=== PATIENT | male | born 1985 | race Caucasian/White ===

== ENCOUNTER 2022-10-29 15:31 | Emergency (ER) | payer SELFPAY ==
[2022-10-29 15:33] VITALS: BP 133/88; PULSE 63; RESP 16; TEMP 36.8; O2SAT 99; BMI 23.7
--- NOTE | 2022-10-29 16:16 | CT_ITS ---
STUDY: CT ABDOMEN AND PELVIS WITHOUT CONTRAST REASON FOR EXAM: Male, 37 years old. Pain RADIATION DOSAGE (If Supplied By Facility): CTDIvol = ( 6.08 ) mGy, DLP = ( 315.78 ) mGycm TECHNIQUE: Transaxial images were obtained from the dome of the diaphragm to the symphysis pubis without oral contrast, and without intravenous contrast. Sagittal and coronal images were reconstructed. The spleen 8 Individualized dose optimization techniques were used for this CT. COMPARISON: None. FINDINGS: The visualized lung bases are unremarkable. The visualized portions of the heart are within normal limits. Normal liver. Normal gallbladder and extrahepatic biliary system. Normal spleen. Normal pancreas. Normal bilateral adrenal glands. Abnormal right kidney. Mild hydronephrosis. Suggestion of diffuse renal edema. Findings are related to a 2 mm distal right ureteral stone. This can be seen on axial image 150 and coronal image 65. Normal left kidney. Evaluation of the GI tract is limited by absence of oral contrast. Cannot exclude stomach wall thickening. No dilated loops of bowel or evidence for obstruction. Cannot exclude segmental thickening of the cifuentes of the small or large bowel. Cannot exclude enteritis or colitis. Marked diffuse fecal retention. Appendix within normal limits. Normal abdominal aorta. Normal inferior vena cava. Normal retroperitoneum. Normal urinary bladder. Normal abdominal wall. Normal osseous structures. CT/Abdomen/Pelvis without Cont IMPRESSION: Obstruction of the right kidney collecting system and ureter from a 2 mm distal right ureteral stone. Electronically Signed: Missael Burnham MD at 17:34 EDT ,
--- NOTE | 2022-10-29 16:17 | EDS_ITS ---
HPI HPI - GI History of Present Illness Chief Complaint: Abd Pain Detail of Chief Complaint: Flank pain since 10:30 AM. Informant: patient Abdominal Pain/Flank Pain Onset: Today and Hours Context: Sudden Onset Timing: Continuous Quality: Sharp and Stabbing Location: Right Flank Current Severity: Severe Maximum Severity: Severe Worsened by: Nothing Relieved by: Nothing Nausea/Vomiting/Emesis GI Symptom: Positive for Nausea Onset: Today Severity: Mild Diarrhea/Melena/Hematochezia GI Symptom: Negative for Diarrhea, Melena or Hematochezia Associated Symptoms Associated Symptoms: Negative for Dysuria, Frequency or Hematuria Narrative Narrative: 29-year-old male noticing a past medical or surgical history. Currently on no medications. States he had sudden onset right flank pain at 10:30 AM this morning. It has been constant since that time. It does wax and wane but he has had constant pain. No history of kidney stone. No trauma. Denies any fever. No dysuria or hematuria. Prior similar symptoms: No Recent Illness/Hospitalization: No PFSH PFSH Medical History no medical history no medical history Home Medications NK 10/29/22 [History Last Taken Unknown] Allergy/AdvReac Type Severity Reaction Status Date / Time codeine Allergy Intermediate Hives Verified 10/29/22 15:38 Surgical History no surgical history no surgical history Social History Smoking Status: Never smoker ROS ROS ED ROS Narrative Right flank pain today. No recent illness. Review of Systems ROS Unobtainable: Denies due to encephalopathy Constitutional Constitutional ED: Denies chills or fever(s) ENT ENT ED: Denies ear pain Cardiovascular Cardiovascular: Denies chest pain Respiratory/Chest Respiratory/Chest: Denies cough Gastrointestinal Gastrointestinal: Reports abdominal pain and nausea; Denies constipation, diar jean, melena or vomiting Genitourinary Genitourinary ED: Denies dysuria or hematuria Musculoskeletal Musculoskeletal: Reports back pain; Denies arthralgias Integumentary Denies abscess Neurologic Neurologic: Denies headache(s) Psychiatric Psychiatric: Denies anxiety Endocrine Endocrinology: Denies polydipsia Hematologic/Lymphatic Hematologic/Lymphatic: Denies easy bleeding Allergic/Immunologic Allergic/Immunologic ED: Denies mouth swelling EXAM Physical Exam Narrative Exam Narrative: 37-year-old male with vital signs stable afebrile. Complaining of right flank pain. H EENT exam unremarkable. Lungs clear. Heart regular rhythm rate about 60 no murmur. Chest wall nontender. Abdomen soft nondistended normal bowel sounds no peritoneal signs. Back nontender. No signs of trauma. Moving all 4 extremities. Neurologically is awake and alert with no focal motor deficits. Const Vital Signs: 10/29/22 15:33 10/29/22 16:41 10/29/22 17:51 Temperature 98.2 F Temperature Source Oral Pulse Rate 63 68 72 Respiratory Rate 16 15 18 Blood Pressure 133/88 H 125/86 H 101/68 Blood Pressure Mean 103 99 79 Pulse Ox 99 100 98 Oxygen Delivery Method Room Air Room Air Room Air Positive well nourished and well developed; Negative for obese, cachectic, contractures or unkempt General Appearance ED: well developed and NAD; Negative for unkempt, cachectic, contractures or pallor Nutritional Appearance: Negative for cachectic or obese HEENT Reports moist mucous membranes normocephalic and atraumatic; Negative for trauma or tenderness Eyes PERRL and EOMs intact bilaterally General Eye ED: Negative for pale conjunctiva or scleral icterus Neck no lymphadenopathy, supple and no JVD General: Negative for tenderness Carotids: Negative for other Lymph Lymphatic: Negative for other Resp normal respiratory effort and clear to auscultation bilaterally Effort and Inspection: Negative for respiratory distress or retractions Auscultation: Negative for rales, rhonchi or wheezes Cardio regular rate, regular rhythm, S1 normal heart sound, S2 normal heart sound and no murmurs Rate: Negative for bradycardia or tachycardic Rhythm: Negative for abnormal rhythm GI non-distended and no masses; Negative for non-tender GI Narrative: right-sided tenderness. . No Nava sign. No McBurney's point tenderness. Nondistended. Soft. Positive bowel sounds. Inspection: Negative for abdominal distention Auscultation: normoactive bowel sounds Palpation: soft and tender; Negative for guarding, rigid, hepatomegaly, splenomegaly, hernia, mass, pulsatile mass or rebound tenderness present Back/Spine no CVA tenderness General Back: Negative for CVA tenderness Cervical Spine: Negative for cervical spine tenderness Thoracic Spine / Upper Back: Negative for thoracic spinal tenderness Lumbar Spine / Lower Back: Negative for lumbar spinal tenderness Extremity full ROM General Extremety ED: Negative for edema or tenderness General Extremity: Negative for edema Neuro CN's II-XII intact bilaterally and moves all extremities Sensorium / Orientation: alert, oriented to person and oriented to place; Negative for oriented to time, orientation impaired, confused or lethargic Motor Exam: strength 5/5 throughout Psych mental status grossly normal and thought process normal Appearance: Negative for unkempt Attitude: No agitated Mood & Affect: Negative for depressed, anxious or tearful Skin no wounds General Skin Exam: Negative for jaundice or pallor Lesions: no lesions Rashes: no rashes Trauma: Negative for abrasion Nails: Negative for discolored Image ED - Body Diagram Man: 1. Right-sided tenderness. MDM MDM MDM Narrative Medical decision making narrative: 37-year-old male no seen past medical or surgical history with right sided abdominal pain. Clinically it sounds like a kidney stone. Gallstone or gallbladder disease would also be in the differential clinically and only gets appendicitis. He will be treated with IV fluids, Zofran, Toradol and Dilaudid. Screening labs and CAT scan without contrast. He was seen at another local emergency department never was evaluated by a physician in the left prior to his evaluation there. Repeat exam & today 4 PM patient is doing better actually with IV pain medication. We discussed his CAT scan and CBC. Awaiting further labs. Patient doing well on repeat exam at 6:49 PM. Discharged home. Urine strainer. Fluids. Motrin. [place] for more severe pain. Return if intractable pain, fever or vomiting. History & Record Review Discussion w/independent historian: Patient Lab Data Attestation: I reviewed the patient's lab results. Lab results narrative: CBC showed an elevated white count of 16. I think this is secondary to pain. H&H of 13.6 and 40. Platelets 309. CAT scan of the head without contrast shows a right 2 mm distal ureteral stone with hydro-. CMP unremarkable. Gap 7 BUN and creatinine 21 1.3. Liver enzymes unremarkable other than ALT of 167. Glucose 95. Urinalysis shows no white or red cells. No nitrites. Labs: Laboratory Results - last 24 hr 10/29/22 10/29/22 15:55 18:07 WBC 16.0 H RBC 4.42 L Hgb 13.6 Hct 40.8 MCV 92.3 MCH 30.8 MCHC 33.3 RDW Std Deviation 42.4 RDW Coeff of Jeannette 12.4 Plt Count 309 MPV 11.0 Immature Gran % (Auto) 0.400 Neut % (Auto) 85.7 H Lymph % (Auto) 9.6 L [place] % (Auto) 3.8 Eos % (Auto) 0.1 Baso % (Auto) 0.4 Absolute Neuts (auto) 13.7 H Absolute Lymphs (auto) 1.53 Nucleated RBC % 0 Sodium 139 Potassium 3.7 Chloride 107 Carbon Dioxide 25.0 Anion Gap 7 BUN 21 H Creatinine 1.32 H Estim Creat Clear Calc 80.81 Est GFR (MDRD) Af Amer 78 Est GFR (MDRD) Non-Af 65 BUN/Creatinine Ratio 15.9 Glucose 95 Calcium 8.8 Total Bilirubin 0.50 AST 77 H ALT 167 H Alkaline Phosphatase 75 Total Protein 7.4 Albumin 3.8 Globulin 3.6 Albumin/Globulin Ratio 1.1 Urine Color Yellow Urine Clarity Clear Urine pH 6.5 Ur Specific [place] 1.015 Urine Protein 30 H Urine Glucose (UA) Normal Urine Ketones 5 H Urine Occult Blood Negative Urine Nitrite Negative Urine Bilirubin Negative Urine Urobilinogen 1 H Ur Leukocyte Esterase 25 H Urine RBC 0 SEEN Urine WBC 0-5 SEEN Ur Squamous Epith Cells 0 SEEN Urine Bacteria 0 SEEN Urine Mucus 0 SEEN Radiography Diagnostic Testing: Clinical Impression(s) from Imaging Studies Abdomen/Pelvis CT 10/29/22 16:16 IMPRESSION: Obstruction of the right kidney collecting system and ureter from a 2 mm distal right ureteral stone. Electronically Signed: Missael Burnham MD at 17:34 EDT , Discharge Plan Triage Chief Complaint: Abd Pain ED Provider: Ortega Quiñones Dx/Rx/DC Orders Prescriptions: No Action NK Primary Care Provider: Care Physician,No Primary Referrals: Care Physician,No Primary [Primary Care Provider] -
[2022-10-29 16:23] LABS: Absolute Lymphocyte Count 1.53 X10^3/uL (0.83-4.51); Absolute Neutrophil Count 13.7 X10^3/uL (2.0-7.7); Basophil# 0.06 X10^3/uL; Basophil% 0.4 % (0-1); Eosinophil# 0.02 X10^3/uL; Eosinophils% 0.1 % (0-5); Hematocrit 40.8 % (40-54); Hemoglobin 13.6 g/dL (13.0-16.5); Lymphocyte # 1.53 X10^3/ul (0.83-4.51); Lymphocyte % 9.6 % (19-41); Mean Corp Hgb Conc 33.3 g/dL (32-36); Mean Corpuscular Hgb 30.8 pg (27.0-32.0); Mean Corpuscular Volume 92.3 fL (80-94); Monocyte# 0.61 X10^3/uL; Monocyte% 3.8 % (0-10); NRBC Flagged by Analyzer 0 % (0-5); Neutrophil # 13.73 X10^3/uL (2.7-7.7); Neutrophil % 85.7 % (47-70); Platelet Count 309 K/mm3 (150-450); RBC Distribution Width CV 12.4 % (11.6-14.6); RBC Distribution Width SD 42.4 fl (35.1-43.9); Red Blood Count 4.42 M/mm3 (4.6-6.2)
[2022-10-29] MEDS: Ketorolac 30 MG/ML Syringe IV (16:35)
[2022-10-29] MEDS: Ondansetron 4 MG/2 ML Vial IV (16:35)
[2022-10-29] MEDS: 0.9% Normal Saline 1,000 ML 1000 ML IV (16:35)
[2022-10-29] MEDS: HYDROmorphone 1 MG/ML Syringe IV (16:36)
[2022-10-29 16:41] VITALS: BP 125/86; PULSE 68; RESP 15; O2SAT 100
[2022-10-29 17:51] VITALS: BP 101/68; PULSE 72; RESP 18; O2SAT 98
--- NOTE | 2022-10-29 18:06 | ED.RN ---
Patient ambulatory to bathroom, gait steady. Urine collected nd sent to lab
[2022-10-29 18:12] LABS: Bacteria 0 SEEN /hpf (None Seen); Mucous, Urine 0 SEEN /hpf (<or=2+); Red Blood Cells-Urine 0 SEEN /hpf (0-5); Squamous Epithelial Cells - UA 0 SEEN /hpf (0-5)
[2022-10-29 18:31] LABS: Color, Urine Yellow (Yellow); Glucose, Dipstick Normal (Normal); Ketone-Dipstick 5 mg/dl (Negative); Leukocyte Esterase-Dipstick 25 /ul (Negative); Nitrite-Dipstick Negative (Negative); Occult Blood-Urine Negative /ul (Negative); Protein-Dipstick 30 mg/dl (Negative); Specific Gravity, Urine 1.015 (1.002-1.030); Urine Bilirubin Dipstick Negative (Negative); Urine Clarity Clear (Clear); Urine Urobilinogen 1 mg/dl (Normal); Urine pH 6.5 (5.0 - 8.0)
[2022-10-29 18:34] LABS: ALB/GLOB Ratio 1.1 RATIO (0.9-2.4); AST(SGOT) 77 U/L (15-37); Alanine Aminotransfer ALT/SGPT 167 U/L (16-61); Albumin, Serum 3.8 g/dL (3.2-5.0); Alkaline Phosphatase 75 U/L (45-117); Anion Gap 7 (5-15); BUN 21 mg/dL (7-18); BUN/Creat Ratio 15.9 RATIO (10-20); Calcium,Total 8.8 mg/dL (8.5-10.1); Chloride 107 mmol/L (98-107); Creatinine, Serum 1.32 mg/dL (0.70-1.30); EST Glomerular Filtration Rate 65 mL/min (>60); Est Glom Filt Rate - Afr Amer 78 mL/min (>60); Estimated Creatinine Clearance 80.81 ml/min; Globulin 3.6 g/dL (2.2-4.2); Glucose 95 mg/dL (74-106); Potassium 3.7 mmol/L (3.5-5.1); Protein, Total 7.4 g/dL (6.4-8.2); Sodium Level 139 mmol/L (136-145)
[2022-10-29 18:43] LABS: White Blood Cells 0-5 SEEN /hpf (0-5)
[2022-10-29] MEDS: HYDROmorphone 0.5 MG/0.5 ML SYRINGE IV (19:11)
[2022-10-29 19:18] VITALS: BP 128/78; PULSE 66; RESP 16; O2SAT 99
== END 2022-10-29 19:20 | disposition home or self-care (01) ==
PROVIDERS: Emergency Provider Emergency Medicine; Visit Provider Emergency Medicine
DX: N13.2 Hydronephrosis with renal and ureteral calculous obstruction (principal)
CPT/HCPCS: 74176; 80053; 81001; 85025; 96361; 96374; 96375; 99284; J7030; A4216; J2405